=== PATIENT | male | born 1955 | race African-American/Black ===

== ENCOUNTER 2021-01-02 13:31 | Emergency (ER) | payer OTHER ==
[~2021-01-02] VITALS: Ht 182.9 cm; Wt 127.0 kg
[~2021-01-02 13:31] MED LIST: AMLO10TA4 PO; ASPI-1497 PO; ATOR-2 PO; CLOP75TA33 PO; LOSA50TA41 PO; METO75TA MT; NITR0.4T49 SL; TAMS-11 MT
[2021-01-02] MEDS ORDERED: ACETAMINOPHEN 325MG TABLET PO ONE (15:15)
[2021-01-02 15:38] LABS: CHLORIDE 110 mEq/L (98-107)
[2021-01-02 15:43] LABS: BASOPHILS % 0.4 % (0.0-2.0); EOSINOPHILS % 2.4 % (0.0-5.0); HEMATOCRIT. 43.4 % (42.0-52.0); HEMOGLOBIN. 14.7 g/dL (14.0-18.0); LYMPHOCYTES % 22.7 % (20.0-50.0); MEAN CORPUSCULAR HEMOGLOBIN 30.2 pg (28.0-32.0); MEAN CORPUSCULAR VOLUME 89.3 fL (80.0-94.0); MEAN PLATELET VOLUME 8.8 fl (7.4-10.4); MONOCYTES % 7.9 % (2.0-8.0); NEUTROPHILS % 66.6 % (40.0-76.0); PLATELET 263 x1000/uL (130-400); RED BLOOD CELL COUNT 4.86 mill/uL (4.7-6.1); RED CELL DISTRIBUTION WIDTH 13.1 % (11.6-14.6)
[2021-01-02] MEDS ORDERED: ACET-2708 MT (18:35)
[2021-01-02 19:01] VITALS: BP 151/78
== END 2021-01-02 19:02 | disposition home or self-care (01) ==
LOC: ER 14:50
DX: R51.9 Headache, unspecified (principal); I11.9 Hypertensive heart disease without heart failure; E78.00 Pure hypercholesterolemia, unspecified; E78.5 Hyperlipidemia, unspecified; I25.10 Atherosclerotic heart disease of native coronary artery without angina pectoris; Z79.899 Other long term (current) drug therapy; Z98.890 Other specified postprocedural states
CPT/HCPCS: 36415; 80053; 84484; 85025; 93005; 99284